=== PATIENT | female | born 1990 | race Caucasian/White ===

== ENCOUNTER 2024-10-16 11:35 | Emergency (ER) | payer OTHER ==
[~2024-10-16] VITALS: Ht 154.9 cm; Wt 76.5 kg
[2024-10-16 12:20] VITALS: BP 129/57; PULSE 89; RESP 17; TEMP 99; O2SAT 97
--- NOTE | 2024-10-16 12:21 | ED.PDOC ---
Musculoskeletal HPI Comments Portions of this chart may have been created with an modal fluency direct voice recognition software. Occasional wrong-word or "sound-alike" substitutions may have occurred due to the inherent limitations of voice recognition software. Please read the chart carefully and recognize, using context, where these substitutions have occurred. 32 y/o F, presents to the ED for CC of lower extremity. Patient states, she has been experiencing right knee pain d/t falling while hiking x1week ago. Patient reports, being seen at ED for symptoms x1week ago however, symptoms have persisted. Patient denies head injury, loss of consciousness, or open wounds. No other symptoms or modifying factors present at this time. Right knee pain Started x1week ago Provocation following fall Able to bear weight on the leg Denies trauma to the knee or recent fall Denies skin color changes around the knee Denies masses around the knee Denies popping/locking/giving out of the knee Denies fever chills night sweats nausea vomiting Denies previous surgeries to the knee nor significant injury Chief Complaint: Lower Extremity Time Seen by MD: 12:20 Reviewed Notes: Nurses Notes, Medications, Allergies Allergies: Coded Allergies: NO KNOWN ALLERGIES (Unverified , 10/16/24) Mode of Arrival: Ambulatory Location: Right Extremity Location: Knee Timing: Weeks Prehospital treatment: None Severity: Moderate Able to Move Extremity: Yes Bear Weight: Limited Pain: Moderate Mechanism: Other (FALL) Circumstances: Fall Onset of Symptoms: After Trauma Symptoms: Pain DVT Risk Factors: NONE Last Tetanus: Unknown Associated signs and symptoms: Knee pain Past Medical History PAST MEDICAL HISTORY: Denies Surgical History: Denies all surgeries DISTRIBUTION CENTER ADMINISTRATOR History: Denies all DISTRIBUTION CENTER ADMINISTRATOR Hx Family History Family History: Unknown Social History Smoker: Non-Smoker Alcohol: Denies ETOH Use Drugs: Denies Drug Use Lives In: Home All Other Systems: Reviewed and Negative ( PER HPI) Physical Exam General Appearance: No Apparent Distress, Normal HEENT: Normal ENT Inspection, Pharynx Normal, TMs Normal Neck: Full Range of Motion, Non-Tender, Normal, Normal Inspection Respiratory: Chest Non-Tender, Lungs Clear, No Accessory Muscle Use, No Respiratory Distress, Normal Breath Sounds Cardiovascular: No Edema, No Murmur, No Gallop, Regular Rate/Rhythm Breast Exam: Deferred Gastrointestinal: No Organomegaly, Non Tender, No Pulsatile Mass, Normal Bowel Sounds, Soft Genitalia: Deferred Pelvic: Deferred Rectal: Deferred Extremities: No calf tenderness, Normal capillary refill, Normal inspection, Normal range of motion, Non-tender, No pedal edema Musculoskeletal : Location: Right Extremity Location: Knee (no gross abnormality, no erythema, no open wounds, no ecchymosis, no sts, full active and pasive ROM of the patela, no pain to the posterior/anterior knee, no signs of joint instability, valius vargus stress test positive, anterior/posterior drawer test negative ) Apperance: Normal Neurologic: Alert, tailor's aide II-XII nml as Tested, No Motor Deficits, Normal Affect, Normal Mood, No Sensory Deficits Cerebellar Function: Normal Reflexes: Normal Skin: Dry, Normal Color, Warm Lymphatic: No Adenopathy Was a procedure done? Was a procedure done?: No Differential Diagnosis EXT Differential Diagnosis: Sprain, Dislocation, Strain X-Ray, Labs, Meds, VS Vital Signs Date Time Temp Pulse Resp B/P (MAP) Pulse Ox O2 Delivery O2 Flow Rate FiO2 10/16/24 12:20 99.0 89 17 129/57 (81) 97 99.0 10/16/24 12:20 89 17 97 Room Air 10/16/24 11:52 99.0 89 17 129/57 (81) 97 99.0 Current Medications Medications (Trade) Dose Ordered Sig/Claudia Route Start Time Stop Time Status Last Admin Ketorolac Tromethamine (Toradol Injection) 60 mg ONCE ONCE IM 10/16/24 12:45 10/16/24 12:46 DC 10/16/24 12:36 X-Ray, Labs, Meds, VS Comment 32 y/o F, presents to the ED for CC of lower extremity. Patient arrives alert and oriented, ABC's intact, afebrile, vital signs stable, saturating well in room air Patient was given: Toradol tolerated medications with no adverse reaction. After ROS physical findings are consistent with medial cruciate ligament injury. We will benefit from MRI. Toradol 60 mg IM given, patient tolerated well no adverse effects Prescribed NSAIDs for the management of acute knee pain. Take ibuprofen p.o. 600 mg every 8 hours with food as needed for pain Recommend light walking under the sun for 30 minutes a day Avoiding running jogging high-impact activities Stretch as tolerated Ice 3x/day for 5 minutes Wear knee brace for stability as needed, elevate leg swelling aggravated Additional MDM Review of External, Non-ED records: External records reviewed. Discussion with independent historian (EMS, family) history obtained from the patient/parents (if applicable) at bedside Chronic conditions affecting care: None Social determinants of health affecting care: None Consideration of admission (observation or admission): I considered escalation of care to admission for this patient, however given the reassuring workup, the patient is safe for outpatient management. Time of 1ST Reevaluation: 12:50 Reevaluation 1ST: Unchanged Patient Education/Counseling: Diagnosis, Treatment Family Education/Counseling: No Family Present Departure 1 Departure Time of Disposition: 12:59 Impression: Primary Impression: Knee MCL sprain Qualified Codes: S83.411S - Sprain of medial collateral ligament of right knee, sequela Disposition: HOME / SELF CARE / HOMELESS Condition: Stable Critical Care Note Critical Care Time?: No Stability Stability form required: No Heart Score Heart Score: Heart Score Response (Comments) Value History N/A 0 EKG N/A 0 Age N/A 0 Risk Factors N/A 0 Troponin N/A 0 Total 0 I personally scribed for MELISSA MORENO FINISHED CLOTH EXAMINER ([email or web address]) on 10/16/24 at 12:21. Electronically submitted by Bren Ocampo ([email or web address]). I personally scribed for MELISSA MORENO FINISHED CLOTH EXAMINER ([email or web address]) on 10/16/24 at 12:34. Electronically submitted by Bren Ocampo ([employer] I personally scribed for MELISSA MORENO FINISHED CLOTH EXAMINER ([email or web address]) on 10/16/24 at 12:35. Electronically submitted by Bren Ocampo ([employer] MELISSA MORENO NP Oct 16, 2024 12:21
[2024-10-16] MEDS: KETOROLAC TROMETH 60MG/2ML VIAL IM ONE (12:36)
== END 2024-10-16 13:07 | disposition home or self-care (01) ==
LOC: ER 11:39
DX: S83.411A Sprain of medial collateral ligament of right knee, initial encounter (principal); W19.XXXA Unspecified fall, initial encounter; Y93.01 Activity, walking, marching and hiking; Y92.89 Other specified places as the place of occurrence of the external cause; Y99.8 Other external cause status
CPT/HCPCS: 96372; 99283; J1885